=== PATIENT | male | born 1985 | race Two or more races ===

== ENCOUNTER 2020-05-08 12:20 | Emergency (ER) | payer OTHER ==
[2020-05-08 12:36] VITALS: BP 163/98; PULSE 100; TEMP 99.2; BMI 30.7
[2020-05-08] MEDS ORDERED: KETOROLAC TROMETHAMINE 60 MG/2 ML VIAL IM ONE (13:06)
[2020-05-08] MEDS ORDERED: KETOROLAC TROMETHAMINE 60 MG/2 ML VIAL ONE (13:07)
== END 2020-05-08 14:26 | disposition home or self-care (01) ==
LOC: JERFT 12:20
PROC: 3E0233Z Introduction of Anti-inflammatory into Muscle, Percutaneous Approach (ICD-10-PCS; principal; 2020-05-08)
DX: S80.02XA Contusion of left knee, initial encounter (principal)
CPT/HCPCS: 73562-TC-LT-FY; 99284-25

== ENCOUNTER 2022-10-03 10:49 | Emergency (ER) | payer OTHER ==
[2022-10-03 10:57] VITALS: PULSE 90; RESP 20; TEMP 98.6; BMI 29.0
[2022-10-03] MEDS ORDERED: DEXAMETHASONE LIQUID 0.5 MG/5 ML PO ONE (12:20)
[2022-10-03] MEDS ORDERED: DEXAMETHASONE SOD PHOSPHATE 10 MG/1 ML VIAL ONE (12:26)
[2022-10-03 13:21] VITALS: BP 157/102
== END 2022-10-03 13:32 | disposition home or self-care (01) ==
LOC: JERFT 10:49
DX: T63.441A Toxic effect of venom of bees, accidental (unintentional), initial encounter (principal); R22.1 Localized swelling, mass and lump, neck; R22.0 Localized swelling, mass and lump, head
CPT/HCPCS: 99283-25

== ENCOUNTER 2024-07-18 12:01 | Emergency (ER) | payer OTHER ==
[2024-07-18 12:08] VITALS: BP 165/108; PULSE 95; RESP 19; TEMP 98.8; BMI 29.0
== END 2024-07-18 13:07 | disposition home or self-care (01) ==
LOC: JERFT 12:01
DX: Z48.02 Encounter for removal of sutures (principal)
CPT/HCPCS: 99281-25